=== PATIENT | male | born 1945 | race Caucasian/White ===

== ENCOUNTER 2019-06-05 05:49 | Day surgery (SDC) | payer OTHER ==
[~2019-06-05] VITALS: Ht 188 cm; Wt 97.5 kg
[~2019-06-05 05:49] MED LIST: ACID REDUCER200 MG PO; AMBIEN 5 MG TABL5 M1 PO; APAP650 PO; COZAAR 25 MG TA25 M1 PO; FLONASE 0.05%50 MCG NASAL; FOLIC ACID1 MG PO; HYDROCHLOROTH12.5 M1 PO; LEVOXYL200 MCG PO; LOSARTAN POTAS100 MG PO; MAGOX 400400 MG PO; OCUVITE ADULT1 EAC1 PO; VITAMIN B-121000 MC3 PO; VITAMIN D1000 UNIT PO; ZOLPIDEM TARTRA10 MG PO; ZYRTEC10 M4 PO
[2019-06-05 07:08] LABS: CALCIUM 8.9 mg/dL (8.5-10.1); POTASSIUM 3.4 mmol/L (3.5-5.1)
[2019-06-05 07:09] VITALS: BP 131/58
--- NOTE | 2019-06-05 07:51 | EKG ---
[address] [address] ELECTROCARDIOGRAM REPORT Name: SARINA LILLY Room #: 150-2 [facility]#: [id number] Admission: 06/05/19 Attend Phys: Yfn Whittaker MD Discharge: Date of : 41 Report #: [id number] THIS REPORT FOR: //name// [facility] Test Date: 2019-06-05 Test Time: 06:23:02 Pat Name: SARINA LILLY Department: Room: 150 2 Gender: M Clinical Lab Assistant: ISMAEL : 1945 Requested By: Yfn Whittaker Order Number: [id number] MD: Marcos Rg Measurements Intervals [place] Rate: 55 P: 29 AL: 164 QRS: -18 QRSD: 121 T: 59 QT: 424 QTc: 406 Interpretive Statements Sinus rhythm Nonspecific intraventricular conduction delay Baseline wander in lead(s) V2 No previous ECG available for comparison Electronically Signed On 06-05-2019 7:51:46 CDT by Marcos Rg [email or web address] <ELECTRONICALLY SIGNED> By: Marcos Rg MD 06/05/19 0751 D: 10622 2 Marcos Rg MD /PRITESH
[2019-06-05 14:00] VITALS: BP 111/73
--- NOTE | 2019-06-05 15:22 | NUR ---
73 YO MALE TRANSFERED TO 438 FROM PACU. A&OX4, IV INTACT. ABD TO BACK C/D/I. HEMOVAC INTACT. TOLERATATING PO WELL. PT IS 23 HR OBSERVATION. SPOUSE AT BEDSIDE. ORIENTED PT TO ROOM/CALL LIGHT. VSS.
[2019-06-05 19:40] VITALS: BP 109/59
[2019-06-06 00:06] VITALS: BP 102/57
[2019-06-06 05:00] VITALS: BP 116/57
--- NOTE | 2019-06-06 05:19 | NUR ---
PATIENT ALERT AND ORIENTED X4. C/O PAIN THIS AM BUT DID NOT WANT HYDROCODONE. CALLED DR AND RECEIVED AN ORDER FOR TYLENOL AND GAVE TO PATIENT. SLEPT OFFF AND ON DURING NIGHT. DRESSING ON BACK D/I. HEMAVAC IN PLACE. PASSING FLATUS.
[2019-06-06 07:37] VITALS: BP 102/64
[2019-06-06 09:58] VITALS: BP 102/64
--- NOTE | 2019-06-06 10:18 | NUR ---
ASSUMED CARE AROUND 0715. AXOX4. MID BACK DRESSINF CDI. HEMOVAC PATENT. SEEN BY AT BEDSIDE. RECEIVED AN ORDER TO D/C DRAIN CHANGE DRESSING AND D/C HOME WITH PRESCRIPTION FOR TRAMADOL. SURGICAL SITE WITH STAPLE HEALING. IV REMOVED. D/C INSTRUCTIONS GIVEN AT BEDSIDE. ALL QUESTIONS AND CONCERNS ADDRESSED. NO S/S ACUTE DISTRESS NOTED OR REPORTED AT THIS TIME. AWAITING P/U FOR .
--- NOTE | 2019-06-09 07:42 | O ---
[facility] [place] [address] OPERATIVE REPORT Name: SARINA LILLY Room #: DEP [facility]#: [id number] Admission: 06/05/19 Attend Phys: Yfn Whittaker MD Discharge: 06/06/19 Date of : 41 Report #: [id number] THIS REPORT FOR: //name// CC: CONNOR Whittaker Physician staff DATE OF SERVICE: 06/05/2019 PREOPERATIVE DIAGNOSES: Multilevel degenerative lumbar spondylosis with spinal stenosis and radiculopathy at L2-L3 and L3-L4 levels. POSTOPERATIVE DIAGNOSES: Multilevel degenerative lumbar spondylosis with spinal stenosis and radiculopathy at L2-L3 and L3-L4 levels. PROCEDURE: Decompressive laminectomy, L2, L3, L4 levels. SURGEON: Yfn Whittaker MD INDICATIONS: This fit, active 73-year-old gentleman complains of progressive moderate low back pain and stiffness, but his primary complaint is pain, numbness, tingling and weakness involving both lower extremities. Objective neurologic exam is consistent with radiculopathy and MRI study reveals rather severe spinal stenosis, principally at L2-L3 and L3-L4 where the canal has narrowed down to about 5 mm. The canal opens up above and below that level, but there is some degenerative disk disease and degenerative facet arthropathy at other levels as well. We discussed treatment options and the potential risks and benefits. He understands well and wishes to proceed with decompression of these 2 areas of spinal stenosis. DESCRIPTION OF PROCEDURE: The patient was taken to the operating room where he was placed under general anesthesia. Prophylactic intravenous antibiotics were administered. He was turned to the prone position. Low back was meticulously prepped and draped. C-arm was used to localize the appropriate levels. A skin incision was made from L2 down through L5 level. The paraspinal muscles were retracted laterally. The spinous process was removed from L3 and L4 levels. The canal was opened at the L4-L5 level where there was still sufficient room for visualization. A decompressive laminectomy was then performed moving from distal to proximal including the entire L4 lamina and L3 lamina. This was extended into the inferior aspect of L2 and the superior aspect of L5. The canal was quite tight at the 2-3 and 3-4 levels as noted on preoperative MRI study. The facet joints were undercut, opening up the lateral gutter. The nerve roots were palpated and traced out and seemed to be freed up nicely. The central canal was opened up well with this decompression. The disk of 2, 3 and 3, 4 were both somewhat prominent, but were firm and I did not feel that any attempted disk decompression would be particularly helpful. I felt the bony [address] [address] OPERATIVE REPORT Name: SARINA LILLY Room #: DEP [facility] Enrrique#: [id number] Admission: 06/05/19 Attend Phys: Yfn Whittaker MD Discharge: 06/06/19 Date of : 41 Report #: [id number] decompression was satisfactory. Once a satisfactory decompression had been completed, intraoperative C-arm views were obtained, demonstrating the markers to be above and below the area of stenosis. The press box custodian was still not quite as high up into the L2 lamina as I would like and so further bony decompression was performed after the x-ray was taken. The canal seemed to be widely open at the upper aspect and at the lower aspect once the decompression was completed. There was a moderate amount of oozing from the bony surfaces throughout the procedure. This was controlled with cautery. A small amount of Gelfoam and thrombin was left over the exposed dura, additional thrombin was placed in the wound and the wound was gently packed for several minutes, achieving better hemostasis. A Hemovac was placed extending above the fascia and then the tip was brought down below the fascia into the surgical plane. The fascia and muscle were then closed with multiple #1 Vicryl sutures. The more superficial tissues were closed with 0 Monocryl. The skin was closed with skin cristina. A sterile dressing was applied. The patient was awakened and returned to recovery room in good condition. <ELECTRONICALLY SIGNED> By: Yfn Whittaker MD 06/09/19 0742 [id number] Yfn Whittaker MD /nt
== END 2019-06-06 11:12 | disposition home or self-care (01) ==
LOC: OR 05:49 → TBA 05:50 → OR 11:16 → 4S 14:25 → OR 14:30 → ENTRNSPT 06-06 10:55 → EDTRNSPTSTS 06-06 10:58 → OR 06-06 11:12
PROVIDERS: Orthopaedic Surgery
DX: M54.5 Low back pain (principal); M51.16 Intervertebral disc disorders with radiculopathy, lumbar region; M47.26 Other spondylosis with radiculopathy, lumbar region; M48.061 Spinal stenosis, lumbar region without neurogenic claudication; I10 Essential (primary) hypertension; E03.9 Hypothyroidism, unspecified; K21.9 Gastro-esophageal reflux disease without esophagitis; Z85.820 Personal history of malignant melanoma of skin; Z96.651 Presence of right artificial knee joint; Z98.890 Other specified postprocedural states; Z79.899 Other long term (current) drug therapy; Z88.6 Allergy status to analgesic agent
CPT/HCPCS: 10102; 50010; 50101; 50402; 50704; 50850; 51412; 56525; 62110; 62900; 70005